=== PATIENT | female | born 1955 | race Caucasian/White ===

== ENCOUNTER 2020-04-19 08:29 | Emergency (ER) | payer OTHER ==
[~2020-04-19] VITALS: Ht 160 cm; Wt 124.7 kg
[2020-04-19 09:14] LABS: BASO # 0.1 10*3/uL (0.0-0.1); BASO % 0.6 % (0.0-1.0); EOS % 0.2 % (1.0-4.0); LYMPH # 0.8 10*3/uL (1.3-4.4); LYMPH % 8.4 % (27.0-41.0); MEAN CELL VOLUME 92.9 fl (81.0-99.0); MEAN CORPUSCULAR HGB 28.1 pg (27.0-31.0); MEAN CORPUSCULAR HGB CONC 30.2 g/dl (33.0-37.0); MEAN PLATELET VOLUME 13.8 fl (9.6-12.3); MONO # 0.6 10*3/uL (0.1-1.0); MONO % 6.6 % (3.0-9.0); NEUT % 83.7 % (47.0-73.0); PLATELET COUNT AUTOMATED 263 10*3/uL (130-400); RED BLOOD COUNT 4.95 10*6/uL (4.10-5.10); RED CELL DISTRI WIDTH 12.7 % (0-14.5); WHITE BLOOD COUNT 9.6 10*3/uL (4.8-10.8)
[2020-04-19 09:34] LABS: CREATININE 2.32 mg/dL (0.55-1.02); POTASSIUM 3.2 mmol/L (3.5-5.1); TOTAL PROTEIN 7.6 gm/dL (6.4-8.2)
[2020-04-19 10:30] LABS: ALBUMIN 2.9 gm/dl (3.1-4.5)
== END 2020-04-19 12:23 | disposition short-term general hospital (02) ==
LOC: ED 08:29
PROVIDERS: Emergency Medicine
DX: E11.9 Type 2 diabetes mellitus without complications (principal); R56.9 Unspecified convulsions